=== PATIENT | female | born 1950 | race Caucasian/White ===

== ENCOUNTER 2023-05-29 17:20 | Emergency (ER) | payer OTHER, SELFPAY ==
[2023-05-29 17:22] VITALS: BP 149/87; PULSE 61; RESP 20; TEMP 36.8; O2SAT 100; BMI 29.1
[2023-05-29 17:23] VITALS: BP 149/87
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
[2023-05-29 17:27] VITALS: PULSE 67; RESP 29; O2SAT 100
[2023-05-29 17:40] VITALS: PULSE 71; RESP 14; O2SAT 98
[2023-05-29 17:48] LABS: Basophils Absolute Auto 0.1 10^3/uL (0.0-0.1); Basophils Percent Auto 0.9 % (0.2-2.0); Eosinophils Absolute Auto 0.1 10^3/uL (0.0-0.7); Eosinophils Percent Auto 1.7 % (0.9-7.0); Hematocrit 43.2 % (36.0-48.0); Hemoglobin 14.9 g/dL (12.0-16.0); Immature Granulocytes Abs Auto 0.04 10^3/uL (0.00-0.03); Immature Granulocytes Pct Auto 0.6 % (0.0-0.5); Lymphocytes Absolute Auto 2.1 10^3/uL (1.2-3.8); Lymphocytes Percent Auto 31.7 % (20.5-60.0); Mean Corpuscular HGB Conc 34.5 g/dL (29.9-35.2); Mean Corpuscular Volume 86.9 fL (81.0-99.0); Mean Platelet Volume 9.8 fL (9.5-13.5); Monocytes Absolute Auto 0.5 10^3/uL (0.3-0.8); Monocytes Percent Auto 7.6 % (1.7-12.0); Neutrophils Absolute Auto 3.7 10^3/uL (1.4-6.5); Neutrophils Percent Auto 57.5 % (43.0-75.0); Platelet Count 317 10^3/uL (150-450); Red Blood Count 4.97 10^6/uL (4.20-5.40); Red Cell Distribution Width 13.7 % (11.0-15.0); White Blood Count 6.5 10^3/uL (4.0-11.0)
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
[2023-05-29 18:02] VITALS: PULSE 77; RESP 15; O2SAT 98
[2023-05-29 18:05] LABS: Alanine Aminotransferase 33 U/L (14-59); Albumin Level 3.7 g/dL (3.4-5.0); Alkaline Phosphatase 128 U/L (46-116); Anion Gap 17.7; Aspartate Amino Transferase 34 U/L (15-37); BUN Creatinine Ratio 18.2; Bilirubin Total 0.6 mg/dL (0.2-1.0); Carbon Dioxide 21.7 mmol/L (21.0-32.0); Chloride 104 mmol/L (98-107); Estimated GFR (African America 53 (>=60); Estimated GFR (Non-African Ame 44 (>=60); Globulin 3.8 g/dL; Glucose 129 mg/dL (74-106); Potassium 3.4 mmol/L (3.5-5.1); Prothrombin Time 14.6 sec (9.0-11.6); Sodium 140 mmol/L (136-145); Total Protein 7.5 g/dL (6.4-8.2)
[2023-05-29 18:12] VITALS: BP 166/82; PULSE 63; RESP 20; O2SAT 98
[2023-05-29] MEDS: HYDROCODONE/ACET 10-325 MG TABLET 1 TAB PO (19:06)
[2023-05-29] MEDS: DIPHENHYDRAMINE HCL 25 MG CAPSULE PO (19:06)
== END 2023-05-29 19:49 | disposition home or self-care (01) ==
PROVIDERS: Emergency Provider Emergency Medicine Emergency Medical Services; PCP Internal Medicine
DX: S20.219A Contusion of unspecified front wall of thorax, initial encounter (principal); V49.49XA Driver injured in collision with other motor vehicles in traffic accident, initial encounter; Z79.01 Long term (current) use of anticoagulants; M50.30 Other cervical disc degeneration, unspecified cervical region
CPT/HCPCS: 36415; 70450; 71250; 72125; 74176; 80053; 85025; 85610; 99284

== ENCOUNTER 2025-01-15 15:36 | Outpatient (OUT) | payer MEDICARE, SELFPAY | END 2025-01-15 15:37 | disposition home or self-care (01) | PROVIDERS: PCP Internal Medicine; Visit Provider Internal Medicine Hematology & Oncology | DX: I82.512 Chronic embolism and thrombosis of left femoral vein (principal); Z79.01 Long term (current) use of anticoagulants; C50.411 Malignant neoplasm of upper-outer quadrant of right female breast; Z17.0 Estrogen receptor positive status [ER+] | CPT/HCPCS: 93970 ==